=== PATIENT | male | born 1990 | race Caucasian/White ===

== ENCOUNTER 2019-01-16 13:13 | Emergency (ER) | payer OTHER ==
[~2019-01-16] VITALS: Ht 170.2 cm; Wt 77.1 kg
[2019-01-16 13:23] VITALS: BP 144/90; PULSE 101; RESP 18; Ht 170.2 cm; Wt 77.1 kg
--- NOTE | 2019-01-16 13:47 | ERD ---
ER Documentation Chief Complaint Chief Complaint chest pain worse when bends over, denies pain now. HPI Otherwise healthy 28-year-old male is here complaining of intermittent chest pain for the past 3 days. He states is usually at night or when he bends over and at times is associated with left upper extremity pain. At this time he denies any symptoms. He has no cardiac past medical history. Denies any alcohol smoking or drugs. No palpitations or shortness of breath. ROS All systems reviewed and are negative except as per history of present illness. FmHx Family History: No diabetes Physical Exam Vitals Vital Signs Date Temp Pulse Resp B/P (MAP) Pulse Ox O2 O2 Flow FiO2 Time Delivery Rate 01/16/19 97.8 101 18 144/90 99 13:23 (108) Physical Exam INITIAL VITAL SIGNS: Reviewed by me GENERAL: Awake, alert and oriented x 4, well appearing, nontoxic, speaking in full sentences. Anxious RESPIRATORY: Clear to auscultation bilaterally. Symmetric chest wall rise. No wheezing or rales. No accessory muscle use. CV: Regular rate and rhythm. No murmurs, rubs, or gallops. No tenderness to palpation throughout chest wall Procedures/MDM Patient is here with chest pain. His EKG is normal no evidence of ST elevation or acute ischemic changes. He is young and lacks any cardiac risk factors. Likely musculoskeletal versus anxiety. Chest x-ray was ordered. Chest x-ray is negative. He was given copies of the results. Patient counseled regarding my diagnostic impression and care plan. Prior to discharge all questions answered. Pt agrees with treatment plan and understands strict return precautions. Pt is instructed to follow up with primary care provider within 24-48 hours. Precautionary instructions provided including instructions to return to the ER if not improving or for any worsening or changing symptoms or concerns. Departure Diagnosis: Primary Impression: Atypical chest pain Condition: Stable CRISTIANO NARAYANAN PA-C Jan 16, 2019 13:47
== END 2019-01-16 15:00 | disposition home or self-care (01) ==
LOC: FTE 13:13
DX: R07.89 Other chest pain (principal)
CPT/HCPCS: 71045; 93005; Z7502